=== PATIENT | male | born 1970 | race Two or more races ===

== ENCOUNTER 2019-05-20 12:58 | Emergency (ER) | payer OTHER ==
[~2019-05-20] VITALS: Ht 180.3 cm; Wt 86.2 kg
[~2019-05-20 12:58] MED LIST: DOXYCYCLINE HY100 MG PO; HumaLOG 100 UNIT/1 M SUBCUTANEO; Lantus 1000 U/10 ML SUBCUTANEO
== END 2019-05-20 18:05 | disposition home or self-care (01) ==
LOC: ER 12:58
DX: L03.031 Cellulitis of right toe (principal); S90.111A Contusion of right great toe without damage to nail, initial encounter; W22.8XXA Striking against or struck by other objects, initial encounter; Y93.89 Activity, other specified; Y92.018 Other place in single-family (private) house as the place of occurrence of the external cause; Y99.8 Other external cause status

== ENCOUNTER 2020-07-24 15:12 | Emergency (ER) | payer OTHER ==
[~2020-07-24] VITALS: Ht 180.3 cm; Wt 77.1 kg
== END 2020-07-24 22:25 | disposition home or self-care (01) ==
LOC: ER 15:12
DX: E11.65 Type 2 diabetes mellitus with hyperglycemia (principal)

== ENCOUNTER 2020-09-19 09:04 | Outpatient (CLI) | payer OTHER | END 2020-09-19 09:13 | disposition home or self-care (01) | LOC: LAB 09:04 | PROVIDERS: ATTEND Internal Medicine Cardiovascular Disease | DX: I10 Essential (primary) hypertension (principal); E11.9 Type 2 diabetes mellitus without complications; E03.8 Other specified hypothyroidism; E78.2 Mixed hyperlipidemia; N40.0 Benign prostatic hyperplasia without lower urinary tract symptoms; E55.9 Vitamin D deficiency, unspecified ==

== ENCOUNTER 2020-09-25 07:53 | Outpatient (CLI) | payer OTHER | END 2020-09-25 07:55 | disposition home or self-care (01) | LOC: NUCLEAR 07:53 | PROVIDERS: ATTEND Internal Medicine Cardiovascular Disease | DX: I73.9 Peripheral vascular disease, unspecified (principal) ==

== ENCOUNTER → 2020-09-27 | Outpatient (CLI) | payer OTHER | END | disposition home or self-care (01) | LOC: NUCLEAR 09:00 | PROVIDERS: ATTEND Internal Medicine Cardiovascular Disease | DX: I87.2 Venous insufficiency (chronic) (peripheral) (principal) ==